=== PATIENT | male | born 1955 | race Caucasian/White ===

== ENCOUNTER 2017-05-20 09:43 | Emergency (ER) | payer OTHER ==
[~2017-05-20] VITALS: Ht 180.3 cm; Wt 118.0 kg
[2017-05-20 09:47] VITALS: BP 162/83; PULSE 60; RESP 16; TEMP 97.7; O2SAT 98
[2017-05-20] MEDS ORDERED: EZET1TAB8 PO (10:03)
[2017-05-20] MEDS ORDERED: LOSA50TA PO (10:03)
[2017-05-20] MEDS ORDERED: ASPI81TA23 PO (10:03)
--- NOTE | 2017-05-20 11:20 | PD ---
HPI Chief Complaint: Musculoskeletal Complaint Time Seen by Provider: 10:09 Travel History International Travel<30 days: No Contact w/Intl Traveler<30days: No Traveled to known affect area: No History of Present Illness HPI 61-year-old male here with left lower extremity pain, redness, swelling 1 week. Symptoms are present to the medial aspect of the lower extremity starting from the knee extending down to the ankle. No fever or chills. No injury or trauma. Denies history of previous DVT, CA, recent surgery, prolonged immobilization, or hormone therapy. He did drive from [place] sitting in a car for 2 days one week ago. He reports pain is constant, nonradiating. Symptom severity is mild to moderate. No aggravating or alleviating factors. PFSH Past Medical History High Cholesterol: Yes Hypertension: Yes Past Surgical History Surgical History: No Previous Surgery Social History Alcohol Use: Yes (3 x weekly) Tobacco Use: No (never) Substance Use: No Allergies-Medications (Allergen,Severity, Reaction): Coded Allergies: No Known Allergies (Unverified , 05/20/17) Reported Meds & Prescriptions Reported Meds & Active Scripts Active Reported Aspirin EC (Aspirin) 81 Mg Tabdr 81 Mg PO DAILY Ezetimibe 10 Mg Tab 10 Mg PO DAILY Losartan (Losartan Potassium) 50 Mg Tab 50 Mg PO DAILY Review of Systems Except as stated in HPI: all other systems reviewed are Neg General / Constitutional: No: Fever Physical Exam Narrative GENERAL: Alert and well-appearing 5-year-old male SKIN: Warm and dry. Mild erythema to the medial aspect of the left lower extremity from the mid calf extending into the ankle. HEAD: Normocephalic. EYES: No injection or drainage. NECK: Supple CARDIOVASCULAR: Regular rate and rhythm RESPIRATORY: Breath sounds equal bilaterally. No accessory muscle use. GASTROINTESTINAL: Abdomen soft, non-tender, nondistended. MUSCULOSKELETAL: No cyanosis. Left lower extremity: + Tenderness to palpation to the medial aspect of the calf extending down into the ankle. With mild overlying erythema. No pedal edema. 2+ distal pulses. Normal sensation. Brisk cap refill. BACK: Nontender without obvious deformity. No CVA tenderness. Data Data Last Documented VS Vital Signs Date Time Temp Pulse Resp B/P (MAP) Pulse Ox O2 Delivery O2 Flow Rate FiO2 05/20/17 09:47 97.7 60 16 162/83 (109) 98 Orders Orders Us Leg Venous Doppler (05/20/17 10:21) Ed Discharge Order (05/20/17 12:13) MDM Medical Decision Making Medical Screen Exam Complete: Yes Emergency Medical Condition: Yes Differential Diagnosis DVT, superficial thrombophlebitis, cellulitis, lymphangitis Narrative Course 61-year-old male here with pain and swelling of the left lower extremity. The extremity is neurovascularly intact. Ultrasound LLE: Per radiology read Negative for DVT. There is echogenic thrombus seen in the superficial system of the mid calf. Discussed findings with patient. He was instructed to apply warm compresses to the area, NSAIDs, follow primary doctor. Return precautions were discussed. A verbalizes understanding and agrees to plan Diagnosis Primary Impression: Superficial thrombophlebitis Qualified Codes: I80.02 - Phlebitis and thrombophlebitis of superficial vessels of left lower extremity Referrals: Primary Care Physician Additional Instructions: Apply warm compresses to the area several times per day. Ibuprofen 800 mg every 6 hours as needed for discomfort. Follow-up with her primary doctor. Return if he developed new or worsening symptoms. Disposition: 01 DISCHARGE HOME Condition: Stable Judy Patterson May 20, 2017 11:20
--- NOTE | 2017-05-20 11:59 | RADRPT ---
EXAM DATE/TIME: 05/20/2017 11:19 [facility] COMPARISON: No previous studies available for comparison. INDICATIONS : Left leg pain. MEDICAL HISTORY : Hypercholesterolemia. Hypertension. SURGICAL HISTORY : None. ENCOUNTER: Initial ACUITY: 1 day PAIN SCORE: 4/10 LOCATION: Left leg. TECHNIQUE: Venous ultrasound of the leg was performed from the inguinal ligament to the proximal calf. Real-juarez e, color Doppler and spectral tracing, compression and augmentation techniques were used. FINDINGS: There is normal compressibility of the deep venous system from the inguinal region to the proximal ca lf. No echogenic clot is seen in the lumen of the common femoral, femoral, popliteal, and posterior tibial veins. There is a normal response of the venous system to proximal and distal augmentation an d respiration. There is echogenic thrombus seen in the superficial system of the mid calf. CONCLUSION: Negative for deep venous thrombosis. The Dale Lara MD on May 20, 2017 at 11:57 Board Certified Radiologist. This report was verified electronically.
== END 2017-05-20 12:23 | disposition home or self-care (01) ==
LOC: PHEFT 09:43
DX: I80.02 Phlebitis and thrombophlebitis of superficial vessels of left lower extremity (principal); E78.00 Pure hypercholesterolemia, unspecified; I10 Essential (primary) hypertension; Z79.82 Long term (current) use of aspirin; Z79.899 Other long term (current) drug therapy
CPT/HCPCS: 93971; 99284